=== PATIENT | male | born 1950 | race Two or more races ===

== ENCOUNTER 2024-06-28 16:55 | Emergency (ER) | payer MEDICAID, OTHER ==
[~2024-06-28] VITALS: Ht 165.1 cm; Wt 182.0 kg
[2024-06-28 16:58] VITALS: BP 176/98
--- NOTE | 2024-06-28 17:20 | ED.PDOC ---
General HPI Comments 74 year old male presents to the ED with chief complaint of urine retention. Patient reports that he has been unable to urinate since 6:30am today along with experiencing constipation and suprapubic abdominal pain. Patient denies any N/V/D, chest pain, dizziness, fever, chills, or dysuria. Chief Complaint: Abdominal Pain Time Seen by MD: 17:16 Reviewed notes: Nurses Notes, Medications, Allergies Allergies: Coded Allergies: NO KNOWN ALLERGIES (Unverified , 06/28/24) Information Source: Patient Mode of Arrival: EMS Severity: Moderate Inability to void: Complete Timing: Hours Duration: Since onset Has not urinated for: Hours Prehospital treatment: None Onset: Spontaneous Symptoms: Inability to void History of: None Location: Suprapubic Penile discharge: None Modifying factors: None associated signs and symptoms: Abdominal Pain, Inability to Void Past Medical History Past Medical History (Other): Parkinson's Surgical History: Denies all surgeries Family History Family History: Reviewed,noncontributory to illness Social History Smoker: Non-Smoker Alcohol: Denies ETOH Use Drugs: Denies Drug Use Lives In: Home Constitutional: denies: chills, diaphoresis, fatigue, fever, malaise, sweats, weakness, others EENTM: denies: blurred vision, double vision, ear bleeding, ear discharge, ear drainage, ear pain, ear ringing, eye pain, eye redness, hearing loss, mouth pain, mouth swelling, nasal discharge, nose bleeding, nose congestion, nose pain, photophobia, tearing, throat pain, throat swelling, voice changes, others Respiratory: denies: cough, hemoptysis, orthopnea, SOB at rest, shortness of breath, SOB with excertion, stridor, wheezing, others Cardiovascular: denies: chest pain, dizzy spells, diaphoresis, Dyspnea on exertion, edema, irregular heart beat, left arm pain, lightheadedness, palpitations, PND, syncope, others Gastrointestinal: reports: abdominal pain, constipated; denies: abdomen distended, blood streaked bowels, diarrhea, dysphagia, difficulty swallowing, hematemesis, melena, nausea, poor appetite, poor fluid intake, rectal bleeding, rectal pain, vomiting, others Genitourinary: reports: others (Inability to void); denies: burning, dysuria, flank pain, frequency, hematuria, incontinence, penile discharge, penile sore, pain, testicle pain, testicle swelling, urgency Neurological: denies: dizziness, fainting, headache, left sided numbness, left sided weakness, numbness, paresthesia, pre-existing deficit, right sided n umbness, right sided weakness, seizure, speech problems, tingling, tremors, weakness, others Musculoskeletal: denies: back pain, gout, joint pain, joint swelling, muscle pain, muscle stiffness, neck pain, others Integumetry: denies: bruises, change in color, change in hair/nails, dryness, laceration, lesions, lumps, rash, wounds, others Allergic/Immunocompromised: denies: Difficulty Healing, Frequent Infections, Hives, Itching, others Hematologic/Lymphatic: denies: anemia, blood clots, easy bleeding, easy bruising, swollen glands, others Endocrine: denies: excessive hunger, excessive sweating, excessive thirst, excessive urination, flushing, intolerance to cold, intolerance to heat, unexplained weight gain, unexplained weight loss, others Psychiatric: denies: anxiety, bipolar disorder, depression, hopeless, panic disorder, schizophrenia, sleepless, suicidal, others All Other Systems: Reviewed and Negative Physical Exam General Appearance: Moderate Distress, Normal HEENT: Normal ENT Inspection, PERRL/EOMI Neck: Full Range of Motion, Non-Tender, Normal, Normal Inspection Respiratory: Chest Non-Tender, Lungs Clear, No Accessory Muscle Use, No Respiratory Distress, Normal Breath Sounds Cardiovascular: No Edema, No JVD, No Murmur, No Gallop, Normal Peripheral Pulses, Regular Rate/Rhythm Breast Exam: Deferred Gastrointestinal: No Organomegaly, Non Tender, No Pulsatile Mass, Normal Bowel Sounds, Soft Genitalia: Deferred Pelvic: Deferred Rectal: Deferred Extremities: No calf tenderness, Normal capillary refill, Normal inspection, Normal range of motion, Non-tender, No pedal edema Musculoskeletal : Apperance: Normal Neurologic: Alert Cerebellar Function: NOT DONE Reflexes: NOT DONE Skin: Dry, Normal Color, Warm Peripheral Pulses: 3+ Radial (R), 3+ Radial (L) Lymphatic: No Adenopathy Was a procedure done? Was a procedure done?: No Differential Diagnosis Kidney stone (Female): Musculoskeletal pain, Urinary obstruction, Urolithiasis Kidney stone (Male): N/A X-Ray, Labs, Meds, VS Vital Signs Date Time Temp Pulse Resp B/P (MAP) Pulse Ox O2 Delivery O2 Flow Rate FiO2 06/28/24 16:58 97.8 79 18 176/98 (124) 94 06/28/24 16:58 97.8 79 18 176/98 (124) 94 97.8 Patient alert. Complaining of urinary retention. Vitals stable. Answering questions. Parkinson's disease. Blood pressure elevated. Possibly prostate. Was given clonidine. Placed a Bourne catheter. Reviewed his history. Explained to the patient about treatment plan. We will be signed out to Dr. Mast. Time of 1ST Reevaluation: 18:16 Reevaluation 1ST: Unchanged Patient Education/Counseling: Diagnosis, Treatment Family Education/Counseling: No Family Present Assigned to Dr. Mast Departure 1 Departure Time of Disposition: 17:34 Impression: Primary Impression: Hypertensive urgency Additional Impressions: Prostate hypertrophy Urinary retention Urinary tract infection Qualified Codes: N30.00 - Acute cystitis without hematuria Parkinsons disease Qualified Codes: G20.A1 - Parkinson's disease without dyskinesia, without mention of fluctuations Disposition: ADMITTED INPATIENT Admit to: Med Surg Condition: Guarded Critical Care Note Critical Care Time?: Yes (45 min-critical care time only) Stability Stability form required: No Heart Score Heart Score: Heart Score Response (Comments) Value History N/A 0 EKG N/A 0 Age N/A 0 Risk Factors N/A 0 Troponin N/A 0 Total 0 I personally scribed for TRUNG ANDINO MD ([email or web address]) on 06/28/24 at 17:20. Electronically submitted by Lionel Amin ([email or web address]). TRUNG ANDINO MD Jun 28, 2024 17:20
[2024-06-28] MEDS: cefTRIAXone 1GM/50ML D5W 50 ML IV ONE (17:46)
[2024-06-28 18:00] LABS: Basophils # (auto) 0.1 10 ^3/uL (0-0.2); Basophils % (auto) 0.6 % (0.0-2.0); Eosinophils # (auto) 0.2 10 ^3/uL (0-0.8); Eosinophils % (auto) 1.4 % (0.0-7.0); Hematocrit 46.9 % (41.0-53.0); Hemoglobin 15.8 g/dL (13.5-17.5); Lymphocytes % (auto) 18.9 % (10.0-50.0); Mean Corpuscular Hgb Conc. 33.7 g/dL (32.0-36.0); Mean Corpuscular Volume 95.1 fL (80.0-100.0); Monocytes # (auto) 1.2 10 ^3/uL (0-1.3); Monocytes % (auto) 7.6 % (0.0-12.0); Neutrophils # (auto) 11.3 10 ^3/uL (1.6-8.6); Neutrophils % (auto) 71.5 % (37.0-80.0); Platelet Count (auto) 242 10^3/uL (140-450); Red Blood Cells 4.93 10^6/uL (4.5-5.90); Red Cell Distribution Width 13.6 % (11.8-14.3); White Blood Cell 15.8 10^3/uL (4.4-10.8)
[2024-06-28 18:06] VITALS: PULSE 86; RESP 18
[2024-06-28 18:44] LABS: Urine Bacteria None Seen /hpf (None Seen)
[2024-06-28 18:57] LABS: Urine Blood 2+ /uL (Negative); Urine Clarity Clear (Clear); Urine Color Light-Yellow (Yellow); Urine Protein, UAD Negative (Negative); Urine Specific Gravity 1.008 (1.001-1.035); Urine Urobilinogen Normal (Negative); Urine WBC <1 /hpf (0 - 3)
[2024-06-28 19:38] LABS: Chloride 106 mmol/L (98-107); Potassium 4.1 mmol/L (3.5-5.1); Sodium 141 mmol/L (136-145)
[2024-06-28 19:39] LABS: Anion Gap 7 (5-15); Carbon Dioxide 28 mmol/L (20-31)
[2024-06-28 19:40] LABS: Calcium 9.5 mg/dL (8.7-10.4)
[2024-06-28 19:44] LABS: Glucose 106 mg/dL (74-106)
[2024-06-28 19:45] LABS: BUN/Creatinine Ratio 19.2 (10.0-20.0); Blood Urea Nitrogen 15 mg/dL (9-23)
[2024-06-28 20:29] VITALS: PULSE 78; RESP 15; TEMP 97.7; O2SAT 93
--- NOTE | 2024-06-28 20:30 | ED.PDOC ---
Departure 1 Departure Time of Disposition: 20:28 (Patient with a leg bag that is draining clear urine. Patient is feeling significantly better. We will discharge patient home with outpatient follow up) Impression: Primary Impression: Hypertensive urgency Additional Impressions: Urinary tract infection Qualified Codes: N30.00 - Acute cystitis without hematuria Urinary retention Parkinsons disease Qualified Codes: G20.A1 - Parkinson's disease without dyskinesia, without mention of fluctuations Prostate hypertrophy Disposition: HOME / SELF CARE / HOMELESS Condition: Stable Referrals: LAURA PEACOCK MD Additional Instructions: You had a catheter placed today. It is important to follow up with the urologist this week to have it rechecked and removed. If your symptoms worsen or you have any other concerns please return to the emergency room. Discharged With: Spouse JEAN PAUL AUGUSTE MD Jun 28, 2024 20:30
== END 2024-06-28 21:20 | disposition home or self-care (01) ==
LOC: ER 16:55 → EDBD 16:55 → ER 21:20
DX: I16.0 Hypertensive urgency (principal); N39.0 Urinary tract infection, site not specified; G20.A1 Parkinson's disease without dyskinesia, without mention of fluctuations; G24.9 Dystonia, unspecified
CPT/HCPCS: 36415; 51702; 80048; 81001; 85025; 96365; 99284; J0696